=== PATIENT | male | born 1995 | race Caucasian/White ===

== ENCOUNTER 2020-11-11 12:51 | Emergency (ER) | payer OTHER ==
[~2020-11-11] VITALS: Ht 175.3 cm; Wt 102.0 kg
[2020-11-11 12:59] VITALS: BP 144/102
[2020-11-11] MEDS ORDERED: PRED20TA PO (13:26)
[2020-11-11] MEDS ORDERED: CYCL-331 PO (13:26)
[2020-11-11] MEDS ORDERED: LIDO700A21 TP (13:29)
[2020-11-11] MEDS ORDERED: KETOROLAC 15 MG/ML VIAL. IM ONE (13:30)
[2020-11-11] MEDS ORDERED: DEXAMETHASONE 4 MG TABLET PO ONE (13:30)
--- NOTE | 2020-11-11 13:30 | PHYS DOC ---
Past History Past Medical History: No Pertinent History (AMAURI RAMOS APRN) Past Surgical History: No Surgical History (AMAURI RAMOS APRN) Alcohol Use: Rarely (AMAURI RAMOS APRN) General Adult EDM: Chief Complaint: BACK PAIN OR INJURY HPI: HPI: Patient is a 25-year-old male who presents with lower back pain. Patient states that his back has been hurting since Wednesday. Patient denies any known injury. Patient states "I was pretty active over the weekend". Patient states "my pain improves when I entered the room when I am standing". Patient denies radiation of pain. Denies numbness or tingling in his legs. Patient denies taking anything at home for pain. Patient states that he did try and use a ice pack with no relief. Patient denies any health history. (AMAURI RAMOS APRN) Review of Systems: Review of Systems: Constitutional: Denies fever or chills Eyes: Denies change in visual acuity HENT: Denies nasal congestion or sore throat Respiratory: Denies cough or shortness of breath Cardiovascular: Denies chest pain or edema GI: Denies abdominal pain, nausea, vomiting, bloody stools or diarrhea : Denies dysuria Musculoskeletal: Reports low back pain denies joint pain Integument: Denies rash Neurologic: Denies headache, focal weakness or sensory changes Endocrine: Denies polyuria or polydipsia Lymphatic: Denies swollen glands Psychiatric: Denies depression or anxiety (AMAURI RAMOS APRN) Allergies: Allergies: Allergies Coded Allergies Type Severity Reaction Last Updated Verified iodine Allergy Unknown 11/11/20 Yes latex Allergy Unknown 11/11/20 Yes (AMAURI RAMOS APRN) Physical Exam: PE: Constitutional: Well developed, well nourished, no acute distress, non-toxic appearance. [] HENT: Normocephalic, atraumatic, bilateral external ears normal, oropharynx moist, no oral exudates, nose normal. [] Eyes: PERRLA, EOMI, conjunctiva normal, no discharge. [] Neck: Normal range of motion, no tenderness, supple, no stridor. [] Cardiovascular:Heart rate regular rhythm, no murmur [] Lungs & Thorax: Bilateral breath sounds clear to auscultation [] Abdomen: Bowel sounds normal, soft, no tenderness, no masses, no pulsatile masses. [] Skin: Warm, dry, no erythema, no rash. [] Back: Lower back tenderness, no CVA tenderness. [] Extremities: No tenderness, no cyanosis, no clubbing, ROM intact, no edema. [] Neurologic: Alert and oriented X 3, normal motor function, normal sensory function, no focal deficits noted. [] Psychologic: Affect normal, judgement normal, mood normal. [] (AMAURI RAMOS APRN) Current Patient Data: Vital Signs: Vital Signs Date Time Temp Pulse Resp B/P (MAP) Pulse Ox O2 Delivery O2 Flow Rate FiO2 11/11/20 12:59 97.3 92 18 144/102 (116) 97 Room Air (AMAURI RAMOS APRN) EKG: EKG: [] (AMAURI RAMOS APRN) Radiology/Procedures: Radiology/Procedures: [] (AMAURI RAMOS APRN) Heart Score: C/O Chest Pain: No Risk Factors: Risk Factors: DM, Current or recent (<one month) smoker, HTN, HLP, family history of CAD, obesity. Risk Scores: Score 0 - 3: 2.5% MACE over next 6 weeks - Discharge Home Score 4 - 6: 20.3% MACE over next 6 weeks - Admit for Clinical Observation Score 7 - 10: 72.7% MACE over next 6 weeks - Early Invasive Strategies (AMAURI RAMOS APRN) Course & Med Decision Making: Course & Med Decision Making Pertinent Labs and Imaging studies reviewed. (See chart for details) [] Patient presents to the emergency room for lower back pain that started on Wednesday. Patient denies any injury. "I was pretty active over the weekend". Reports using ice pack to lower back with no relief. Denies taking anything for the pain.Denies urinary retention or loss of bowel. Denies numbness and tingling. Patient given Toradol and dexamethasone in the emergency room. Sent home with a prescription for Flexeril, lidocaine patches, and prednisone. Patient also take ibuprofen at home. Patient also requesting a note for work for today and tomorrow. Patient given return precautions. Patient is hemodynamically stable and able to ambulate on his own out of the emergency room. Patient is appreciative and okay with discharge plan. (AMAURI RAMOS APRN) Dragon Disclaimer: Dragon Disclaimer: This electronic medical record was generated, in whole or in part, using a voice recognition dictation system. (AMAURI RAMOS APRN) Departure Departure: Impression: Primary Impression: Lower back pain Qualified Codes: M54.5 - Low back pain Disposition: HOME / SELF CARE / HOMELESS Condition: STABLE Referrals: MARIANNE FLOYD (PCP) Patient Instructions: Back Pain, Adult, [id number] Additional Instructions: You were seen in the emergency room for low back pain. You were given Toradol and dexamethasone in the emergency room for pain. I am sending you home with a prescription for a muscle relaxer, lidocaine patches and also Prednisone. Please take ibuprofen as well for discomfort. You can also use ice to your lower back for discomfort. Please return to the emergency room with worsening symptoms or concerns. EMERGENCY DEPARTMENT GENERAL DISCHARGE INSTRUCTIONS Thank you for coming to [facility] (ED) today and trusting us with you care. We trust that you had a positivie experience in our Emergency Department. If you wish to speak to the department management, you may call the director at [phone]. YOUR FOLLOW UP INSTRUCTIONS ARE FOLLOWS: 1. Do you have a private Doctor? If you do not have a private doctor, please ask for a resource list of physicians or clinics that may be able to assist you with follow up care. 2. The Emergency Physician has interpreted your x-rays. The X-Ray specialist will also review them. If there is a change in the findings, you will be notified in 48 hours when at all possible. 3. A lab test or culture has been done, your results will be reviewed and you will be notified if you need a change in treatment. ADDITIONAL INSTRUCTIONS AND INFORMATION: 1. Your care today has been supervised by a physician who is specially trained in emergency care. Many problems require more than one evaluation for a complete diagnosis and treatment. We recommend that you schedule your follow up appointment as recommended to ensure complete treatment of you illness or injury. If you are unable to obtain follow up care and continue to have a problem, or if your condition worsens, we recommend that you return to the ED. 2. We are not able to safely determine your condition over the phone nor are we able to give sound medical advice over the phone. For these safety reasons, if you call for medical advice we will ask you to come to the ED for further evaluation. 3. If you have any questions regarding these discharge instructions please call the ED at [phone]. SAFETY INFORMATION: In the interest of safety, wellness, and injury prevention; we encourage you to wear your sealbelt, if you smoke; quite smoking, and we encourage family to use a protective helmet for bicycling and other sporting events that present an increased risk for head injury. IF YOUR SYMPTOMS WORSEN OR NEW SYMPTOMS DEVELOP, OR YOU HAVE CONCERNS ABOUT YOUR CONDITION; OR IF YOUR CONDITION WORSENS WHILE YOU ARE WAITING FOR YOUR FOLLOW UP APPOINTMENT; EITHER CONTACT YOUR PRIMARY CARE DOCTOR, THE PHYSICIAN WHOSE NAME AND NUMBER YOU WERE GIVEN, OR RETURN TO THE ED IMMEDIATELY. Scripts Lidocaine (Lidocaine PATCH ) 1 Each Adh..patch 1 EACH TP DAILY for FOR LOCAL PAIN for 4 Days, #4 PATCH REMOVE AFTER 12 HOURS Prov: AMAURI RAMOS APRN 11/11/20 Prednisone (PREDNISONE) 20 Mg Tablet 20 MG PO BID for BACK PAIN for 4 Days, #8 TAB Prov: AMAURI RAMOS APRN 11/11/20 Cyclobenzaprine Hcl (CYCLOBENZAPRINE HCL) 10 Mg Tablet 1 TAB PO TID for PAIN for 5 Days, #15 TAB Prov: AMAURI RAMOS APRN 11/11/20 Attending Signature Attending Signature I have reviewed the PA/CLINICAL MANAGER HOME CARE's note and plan of care. I was available for consultation as needed during the patient's visit in the emergency department. I agree with the clinical impression, plan, and disposition. (QUETA COTE DO) AMAURI RAMOS APRN Nov 11, 2020 13:30 QUETA COTE DO Nov 11, 2020 20:20
[2020-11-11] MEDS ORDERED: DEXAMETHASONE 4 MG TABLET ONE (13:31)
[2020-11-11] MEDS ORDERED: KETOROLAC 15 MG/ML VIAL. ONE (13:32)
== END 2020-11-11 13:42 | disposition home or self-care (01) ==
LOC: ER 12:51
DX: M54.5 Low back pain (principal); Z91.040 Latex allergy status; Z88.8 Allergy status to other drugs, medicaments and biological substances
CPT/HCPCS: 96372; 99283; J1885; J8540

== ENCOUNTER 2021-09-10 20:05 | Emergency (ER) | payer OTHER ==
[~2021-09-10] VITALS: Ht 175.3 cm; Wt 92.0 kg
[~2021-09-10 20:05] MED LIST: CYCL10TA19 PO; LIDO700A21 TP; PRED20TA PO
[2021-09-10 20:15] VITALS: BP 165/101
[2021-09-10] MEDS ORDERED: oxyCODONE/APAP 5/325 1 TAB TABLET PO ONE (20:45)
[2021-09-10] MEDS ORDERED: LIDOCAINE/EPI/TETRACAINE TOPICAL GEL 3 ML. TP ONE (20:45)
[2021-09-10] MEDS ORDERED: DIPHTH,PERTUSS(ACELL),TET TOX 0.5 ML DISP.SYRIN. VAX IM ONE (21:00)
[2021-09-10] MEDS ORDERED: RABIES VIRUS VACC PF 2.5 UNIT / 1 ML VIAL. VAX IM ONE (21:00)
[2021-09-10] MEDS ORDERED: RABIES IMMUNE GLOBULIN/PF 300 UNIT/ML 5ML VIAL. VAX IM ONE (21:15)
[2021-09-10] MEDS ORDERED: ACETAMINOPHEN/CODEINE 300/30MG 4TABLET STARTPACK. PO ONE (21:45)
[2021-09-10] MEDS ORDERED: BACITRACIN ZINC TOPICAL OINT PACKET. TP ONE (21:45)
[2021-09-10] MEDS ORDERED: AMOXICILLIN/K CLAV 875/125MG TABLET. PO ONE (21:45)
[2021-09-10] MEDS ORDERED: AMOX1TAB11 PO (22:05)
[2021-09-10] MEDS ORDERED: HYDR-2155 PO (22:05)
--- NOTE | 2021-09-10 22:06 | PHYS DOC ---
Past History Past Medical History: No Pertinent History (KARIE ORTIZ APRN) Past Surgical History: No Surgical History (KARIE ORTIZ APRN) Alcohol Use: Rarely (KARIE ORTIZ APRN) General Adult EDM: Chief Complaint: ANIMAL BITE HPI: HPI: Patient is a 26-year-old male that presents today with animal bite to bilateral forearms. Patient states he was in his backyard and an unknown dog was in his backyard he was trying to shoot the dog out of his backyard and the dog attacked him and he latched onto his forearms mostly on the right arm he said his left arm does the same some puncture wounds from bites. Patient states he does not know who this dog belongs to and is never seen it before. Patient is unknown on tetanus status. (KARIE ORTIZ APRN) Review of Systems: Review of Systems: Constitutional: Denies fever or chills Eyes: Denies change in visual acuity HENT: Denies nasal congestion or sore throat Respiratory: Denies cough or shortness of breath Cardiovascular: Denies chest pain or edema GI: Denies abdominal pain, nausea, vomiting, bloody stools or diarrhea : Denies dysuria Musculoskeletal: Denies back pain or joint pain Integument: Animal bites to bilateral forearms Neurologic: Denies headache, focal weakness or sensory changes Endocrine: Denies polyuria or polydipsia Lymphatic: Denies swollen glands Psychiatric: Denies depression or anxiety (KARIE ORTIZ APRN) Current Medications: Current Meds: Current Medications Medications (Trade) Dose Ordered Sig/Roberta Start Time Stop Time Status Last Admin Dose Admin Diphtheria/ Tetanus/Acell Pertussis (Boostrix) 0.5 ml ONCE ONCE 09/10/21 21:00 09/10/21 21:03 DC 09/10/21 21:10 0.5 ML Lidocaine/ Epinephrine (Let (Njnx-[id number]-Dvdxg) Gel) 3 ml 1X ONCE 09/10/21 20:45 09/10/21 20:57 DC 09/10/21 21:09 3 ML Oxycodone/ Acetaminophen (Percocet 5/325) 2 tab 1X ONCE 09/10/21 20:45 09/10/21 20:57 DC 09/10/21 21:08 2 TAB Rabies Immune Globulin (HyperRAB 300 UNIT/ML VIAL) 6 ml ONCE ONCE 09/10/21 21:15 09/10/21 21:16 DC 09/10/21 21:39 6 ML Rabies Vaccine Human Diploid Cell (Imovax Rabies 2.5 Unit / ml) 1 ml ONCE ONCE 09/10/21 21:00 09/10/21 21:03 DC 09/10/21 21:36 1 ML (KARIE ORTIZ APRN) Allergies: Allergies: Allergies Coded Allergies Type Severity Reaction Last Updated Verified iodine Allergy Unknown 09/10/21 Yes latex Allergy Unknown 09/10/21 Yes (KARIE ORTIZ APRN) Physical Exam: PE: Constitutional: Well developed, well nourished, no acute distress, non-toxic appearance. [] HENT: Normocephalic, atraumatic, bilateral external ears normal, oropharynx moist, no oral exudates, nose normal. [] Eyes: PERRLA, EOMI, conjunctiva normal, no discharge. [] Neck: Normal range of motion, no tenderness, supple, no stridor. [] Cardiovascular:Heart rate regular rhythm, no murmur [] Lungs & Thorax: Bilateral breath sounds clear to auscultation [] Abdomen: Bowel sounds normal, soft, no tenderness, no masses, no pulsatile masses. [] Skin: Left forearm has multiple abrasions from teeth, has 1 puncture wound approximately 2 mm to the inner aspect of the forearm, he also has a puncture wound measuring approximately 1.5 cm to the outside aspect of the forearm, right forearm has 1 puncture wound on the inner aspect of the right forearm that is 2 cm in length, patient has on the outer aspect of the forearm approximately a 1.5 cm laceration/puncture wound, patient also has multiple abrasions to the right forearm. Back: No tenderness, no CVA tenderness. [] Extremities: Bilateral radial pulses are 2+ neurovascular intact distal to the injuries patient has extension and flexion of all fingers with sensory intact distal to the injuries. Neurologic: Alert and oriented X 3, normal motor function, normal sensory function, no focal deficits noted. [] Psychologic: Affect normal, judgement normal, mood normal. [] (KARIE ORTIZ APRN) Current Patient Data: Vital Signs: Vital Signs Date Time Temp Pulse Resp B/P (MAP) Pulse Ox O2 Delivery O2 Flow Rate FiO2 09/10/21 21:08 24 09/10/21 20:15 98.2 72 165/101 (122) 95 Ventilator (KARIE ORTIZ APRN) EKG: EKG: [] (KARIE ORTIZ APRN) Radiology/Procedures: Radiology/Procedures: [] (KARIE ORTIZ APRN) Heart Score: C/O Chest Pain: N/A Risk Factors: Risk Factors: DM, Current or recent (<one month) smoker, HTN, HLP, family history of CAD, obesity. Risk Scores: Score 0 - 3: 2.5% MACE over next 6 weeks - Discharge Home Score 4 - 6: 20.3% MACE over next 6 weeks - Admit for Clinical Observation Score 7 - 10: 72.7% MACE over next 6 weeks - Early Invasive Strategies (KARIE ORTIZ APRN) Course & Med Decision Making: Course & Med Decision Making Pertinent Labs and Imaging studies reviewed. (See chart for details) Due to the fact that the dog is unknown we will start the rabies protocol on this patient patient will receive the rabies vaccine along with immunoglobulins into the wound with the remaining amount into his deltoid. Patient's tetanus shot will also be updated. Patient states he is leaving town on Wednesday and will not be available here in [facility] for the remaining rabies vaccines, patient will be given a prescription and has been instructed the importance of following up with his ending location for further vaccines on day #3 (09/13/2021), day #7 (09/17/2021) and day #14 (09/24/2021). Patient will also be given a prescription for Augmentin and pain medications. Patient will also be given information on wound care as well by the nursing staff. 2145 wounds were irrigated using high-pressure normal saline, and cleansed with Hibiclens, wounds on the right forearm area were injected with 1.5 mL of rabies immunoglobulins x2, wounds on left forearm were injected with approximately 1mL x2, the remaining amount of 1 mL was injected into the right deltoid. Dressings were applied by nursing staff after application of bacitracin. Patient was given a dose of Augmentin while in the emergency department as well as a Tylenol 3 starter pack to go. Prescription for remaining rabies vaccines that were needed were given to patient. (KARIE ORTIZ APRN) Course & Med Decision Making Did not see or evaluate patient. Did not discuss patient with [facility] REMO[facility]. Generally agree with [facility] REMODELER's work-up and disposition per note. (KELLI HERRERA MD) Dragon Disclaimer: Dragon Disclaimer: This electronic medical record was generated, in whole or in part, using a voice recognition dictation system. (KARIE ORTIZ APRN) Departure Departure: Impression: Primary Impression: Dog bite Qualified Codes: W54.0XXA - Bitten by dog, initial encounter Disposition: HOME / SELF CARE / HOMELESS Condition: STABLE Referrals: PCP,UNKNOWN (PCP) Patient Instructions: Animal Bite, Rabies, Rabies Immune Globulin, human RIG solution for injection Additional Instructions: Augmentin 1 tablet twice daily for 10 full days Cleanse wounds twice daily with antibacterial soap watching for any signs and symptoms of infection which include redness, warmth, drainage or development of a fever Hydrocodone take 1 tablet every 6 hours as needed for pain, use with caution may cause drowsiness and constipation [id number] Motrin take as labeled directed as needed for pain Follow-up on day #3 (09/13/2021), day #7 (09/17/2021), and day #14 (09/24/2021) for remaining rabies vaccine course. Scripts Hydrocodone Bit/Acetaminophen (HYDROCODONE-APAP 5-325 ) 1 Each Tablet 1 TAB PO PRN Q6HRS PRN for PAIN, #14 TAB 0 Refills Prov: KARIE ORTIZ APRN 09/10/21 Amoxicillin/Potassium Clav (AMOX TR-K CLV 875-125 MG TAB) 1 Each Tablet 1 TAB PO BID for animal bite, #20 TAB Prov: KARIE ORTIZ APRN 09/10/21 KARIE ORTIZ APRN Sep 10, 2021 22:06 KELLI HERRERA MD Sep 10, 2021 23:09
== END 2021-09-10 22:13 | disposition home or self-care (01) ==
LOC: ER 20:05
DX: S51.831A Puncture wound without foreign body of right forearm, initial encounter (principal); S51.832A Puncture wound without foreign body of left forearm, initial encounter; S50.811A Abrasion of right forearm, initial encounter; S50.812A Abrasion of left forearm, initial encounter; Z88.8 Allergy status to other drugs, medicaments and biological substances; Z91.040 Latex allergy status; W54.0XXA Bitten by dog, initial encounter; Y93.89 Activity, other specified; Y92.89 Other specified places as the place of occurrence of the external cause; Y99.8 Other external cause status
CPT/HCPCS: 90375; 90471; 90472; 90675; 90715; 96372; 99284